=== PATIENT | male | born 1955 | race Caucasian/White ===

== ENCOUNTER 2016-04-07 10:57 | Observation (INO) ==
--- NOTE | 2016-04-07 11:38 | Emergency Department Note ---
Disposition Clinical Impression: Generalized weakness Pneumonia Qualifiers: Pneumonia type: due to unspecified organism Laterality: bilateral Lung location : lower lobe of lung Qualified Code(s): J18.9 - Pneumonia, unspecified organism Disposition: Admitted As Inpatient Condition: Fair Time of Disposition: 13:24 ([facility]) Altered Mental Status HPI - General Chief Complaint: ED General Medical Stated Complaint: trouble urinating, breathing, increased weakness Time Seen by Provider: 04/07/16 11:00 Source: patient Mode of arrival: ambulatory Limitations: no limitations Nursing Notes Reviewed: Yes Vital Signs Reviewed: Yes - History of Present Illness HPI Narrative: Patient comes emergency room has been having cough congestion and phlegm production shortness of breath alterations in mental status and weakness family notes it has been getting worse over the past 7 days just finished a course denies any diarrhea melena hematochezia or hematemesis E neck pain or neck stiffness denies any rashes or lesions MD complaint: altered mental status Onset (ago): week(s) Timing confirmed by: spouse Pain Severity: moderate Pain Scale: 4 Consistency of Symptoms: getting worse Context: other (recent illness) Associated symptoms: Reports: cough, loss of appetite, malaise, difficulty walking. Denies: chest pain, diaphoresis, fever, chills, headaches, nausea/ vomiting, rash, seizure, shortness of breath, syncope, weakness, foul smelling urine, diarrhea, incontinence - Related Data Home Medications Medication Instructions Recorded Confirmed Aclidinium [place] [Tudorza 400 mcg IH DAILY 04/07/16 04/07/16 Pressair] Albuterol Sulfate [Ventolin Hfa] 18 gm IH PRN 04/07/16 ClonazePAM [Klonopin] 2 mg PO QID 04/07/16 04/07/16 Omeprazole 20 mg PO BID 04/07/16 04/07/16 Oxycodone HCl [Roxicodone 30 MG 30 mg PO Q4H PRN 04/07/16 04/07/16 Immed Release] Oxymorphone HCl [Opana ER] 40 mg PO BID 04/07/16 04/07/16 Salmeterol Xinafoate [Serevent 50 mcg IH BID 04/07/16 04/07/16 Diskus] Allergies Allergy/AdvReac Type Severity Reaction Status Date / Time Oxytetracycline Allergy Hives Verified 04/07/16 13:50 [From Terramycin] Penicillins [PCN] Allergy Hives Verified 04/07/16 14:02 acetaminophen [From Percocet] AdvReac See Verified 04/07/16 14:02 Comments Oxycodone [From Percocet] AdvReac See Verified 04/07/16 14:02 Comments All systems ED: reviewed and negative except as stated. Constitutional: Reports: weakness. Denies: fever, chills Eyes: Denies: vision change ENT ED: Reports: congestion Cardiovascular: Reports: dyspnea on exertion, syncope (near). Denies: chest pain Respiratory: Reports: cough, dyspnea, sputum production Gastrointestinal: Denies: abdominal pain, nausea, vomiting Genitourinary: Denies: urgency, dysuria Musculoskeletal: Denies: back pain Integumentary: Denies: rash, abrasion Neurological: Reports: weakness. Denies: headache Psychiatric: Denies: anxiety Endocrine: Denies: fatigue Hematological/Lymphatic: Denies: easy bleeding Allergic/Immunologic: Denies: facial swelling Past Medical History - Past Medical History Attestation: Yes The following information was validated with the patient. Source: patient, old records reviewed, nursing notes reviewed Medical history: Reports: cancer, COPD, hyperlipidemia, hypertension Psychiatric history: Reports: anxiety - Social History Smoking Status: Former smoker Alcohol use: Reports: none Drug use: Reports: none Physical Exam - General Limitations: no limitations General appearance: alert, in no apparent distress, cachectic, other (Ill appearing emaciated) - Head Head exam: atraumatic, normocephalic, normal inspection - Eye Eye exam: Present: normal appearance, PERRL, EOMI - ENT ENT exam: normal exam, normal oropharynx, mucous membranes moist - Neck Neck exam: Present: normal inspection, full ROM, trachea midline - Chest Chest inspection: Present: normal inspection, symmetric chest wall rise - Respiratory Respiratory exam: Present: normal lung sounds bilaterally - Cardiovascular Cardiovascular exam: Present: regular rate, normal rhythm, normal heart sounds - Abdominal Exam Abdominal exam: Present: Non-Tender, normal bowel sounds. Absent: mass, pulsatile mass - Extremities Exam Extremities exam: Present: normal inspection, full ROM, normal capillary refill. Absent: tenderness, pedal edema - Back Exam Back exam: Present: normal inspection, full ROM - Neurological Exam Neurological exam: Present: alert, oriented X3, CN II-XII intact - Psychiatric Psychiatric exam: Present: normal affect, normal mood - Skin Skin exam: Present: warm, dry, intact, pallor Course Course Narrative: Patient was seen and examined patient evaluation septic workup being performed patient showing that he is normal cardiac normal pressure white count is greater than 20,000 but this may be him to the patient to have elevated white count and lactic acid is level is elevated as a result patient was started on an antibiotics and admitted Vital Signs Temperature 100.4 F H 04/07/16 11:00 Pulse Rate 110 04/07/16 11:00 Respiratory Rate 18 04/07/16 11:00 Blood Pressure 120/71 04/07/16 11:00 O2 Sat by Pulse Oximetry 88 L 04/07/16 11:00 Temperature 98.1 F 04/08/16 11:29 Pulse Rate 90 04/08/16 11:29 Respiratory Rate 15 04/08/16 12:06 Blood Pressure 125/80 04/08/16 11:29 O2 Sat by Pulse Oximetry 93 L 04/08/16 12:06 Oxygen Delivery Oxygen Delivery Nasal Cannula Altered Mental Status - [facility] Narrative Medical decision making narrative: Pneumonia UTI - Differential Diagnosis Likely: altered mental status, delirium, dementia, hyponatremia, sepsis - Medical Records Medical records reviewed: Yes I reviewed the patient's medical records. - Lab Data Lab results reviewed: Yes I reviewed the patient's lab results. Result diagrams: 04/08/16 05:28 04/08/16 05:28 Lab Results 04/07/16 04/07/16 04/07/16 Range/Units 11:30 11:30 11:30 WBC 20.8 H (4.3-11.1) K/mcL RBC 4.63 (4.19-5.50) M/mcL Hgb 12.5 L (12.9-16.9) g/dL Hct 39.0 (37.5-50.1) % MCV 84.2 (83.0-100.0) fL MCH 27.0 L (28.0-33.3) pg MCHC 32.1 (31.6-35.5) g/dL RDW 14.0 (11.5-14.5) % Plt Count 143 (140-400) K/mcL MPV 10.7 (9.4-12.4) fL Immature Gran % 0.7 (0-4) % Seg Neutrophils % 89.6 % Lymphocytes % 3.3 % Monocytes % 6.3 % Eosinophils % 0.0 % Basophils % 0.1 % Neutrophils # 18.6 H (1.6-8.9) K/mcL Lymphocytes # 0.7 (0.6-4.6) K/mcL Monocytes # 1.3 (0.0-1.3) K/mcL Eosinophils # 0.0 (0.0-0.6) K/mcL Basophils # 0.0 (0.0-0.2) K/mcL PT (9.4-12.1) Seconds INR APTT 21.6 L (26.0-36.0) Seconds VBG Lactic Acid (0.5-2.2) mmol/L Sodium 147 H (136-145) mEq/L Potassium 2.6 L (3.5-4.5) mEq/L Chloride 101 (98-109) mEq/L Carbon Dioxide 32 H (19-29) mEq/L BUN 25 (8-26) mg/dL Creatinine 0.82 (0.72-1.25) mg/dL Est GFR ( Amer) > 60 (> 60) Est GFR (Non-Af Amer) > 60 (> 60) BUN/Creatinine Ratio 30 H (6-26) Glucose 190 H (70-99) mg/dL Calculated Osmolality 313 H (280-300) Calcium 8.9 (8.6-10.8) mg/dL Total Bilirubin 0.8 (0.2-1.2) mg/dL Direct Bilirubin (0.0-0.5) mg/dL Indirect Bilirubin (0.0-1.2) mg/dL AST 17 (5-34) Units/L ALT 12 (0-55) Units/L Alkaline Phosphatase 131 H (38-126) Units/L Serum Total Protein 5.9 L (6.0-8.3) g/dL Albumin 2.3 L (3.5-5.0) g/dL Globulin 3.6 H (2.4-3.5) g/dL Albumin/Globulin Ratio 0.6 L (1.1-2.2) TSH (0.350-4.840) mcIU/mL Urine Color (Yellow) Urine Clarity (Clear) Urine pH (5.0-8.0) pH Units Ur Specific [place] (1.010-1.025) Urine Protein (Neg-Trace) mg/dL Urine Glucose (UA) (Normal) mg/dL Urine Ketones (Negative) mg/dL Urine Blood (Negative) Urine Nitrite (Negative) Urine Bilirubin (Negative) Urine Urobilinogen (Normal) mg/dL Ur Leukocyte Esterase (Negative) Urine Microscopic WBC (0-3) per hpf Ur Squamous Epith Cells (None-Few) per lpf Hyaline Casts (None-Few) per lpf Granular Casts (None Seen) per lpf WBC Casts (None Seen) per lpf Ur Culture Indicated? (NO) 04/07/16 04/07/16 04/07/16 Range/Units 11:30 11:30 11:30 WBC (4.3-11.1) K/mcL RBC (4.19-5.50) M/mcL Hgb (12.9-16.9) g/dL Hct (37.5-50.1) % MCV (83.0-100.0) fL MCH (28.0-33.3) pg MCHC (31.6-35.5) g/dL RDW (11.5-14.5) % Plt Count (140-400) K/mcL MPV (9.4-12.4) fL Immature Gran % (0-4) % Seg Neutrophils % % Lymphocytes % % Monocytes % % Eosinophils % % Basophils % % Neutrophils # (1.6-8.9) K/mcL Lymphocytes # (0.6-4.6) K/mcL Monocytes # (0.0-1.3) K/mcL Eosinophils # (0.0-0.6) K/mcL Basophils # (0.0-0.2) K/mcL PT 16.3 H (9.4-12.1) Seconds INR 1.5 APTT (26.0-36.0) Seconds VBG Lactic Acid 3.4 H (0.5-2.2) mmol/L Sodium (136-145) mEq/L Potassium (3.5-4.5) mEq/L Chloride (98-109) mEq/L Carbon Dioxide (19-29) mEq/L BUN (8-26) mg/dL Creatinine (0.72-1.25) mg/dL Est GFR ( Amer) (> 60) Est GFR (Non-Af Amer) (> 60) BUN/Creatinine Ratio (6-26) Glucose (70-99) mg/dL Calculated Osmolality (280-300) Calcium (8.6-10.8) mg/dL Total Bilirubin (0.2-1.2) mg/dL Direct Bilirubin (0.0-0.5) mg/dL Indirect Bilirubin (0.0-1.2) mg/dL AST (5-34) Units/L ALT (0-55) Units/L Alkaline Phosphatase (38-126) Units/L Serum Total Protein (6.0-8.3) g/dL Albumin (3.5-5.0) g/dL Globulin (2.4-3.5) g/dL Albumin/Globulin Ratio (1.1-2.2) TSH 0.384 (0.350-4.840) mcIU/mL Urine Color (Yellow) Urine Clarity (Clear) Urine pH (5.0-8.0) pH Units Ur Specific [place] (1.010-1.025) Urine Protein (Neg-Trace) mg/dL Urine Glucose (UA) (Normal) mg/dL Urine Ketones (Negative) mg/dL Urine Blood (Negative) Urine Nitrite (Negative) Urine Bilirubin (Negative) Urine Urobilinogen (Normal) mg/dL Ur Leukocyte Esterase (Negative) Urine Microscopic WBC (0-3) per hpf Ur Squamous Epith Cells (None-Few) per lpf Hyaline Casts (None-Few) per lpf Granular Casts (None Seen) per lpf WBC Casts (None Seen) per lpf Ur Culture Indicated? (NO) 04/07/16 04/07/16 Range/Units 11:30 11:42 WBC (4.3-11.1) K/mcL RBC (4.19-5.50) M/mcL Hgb (12.9-16.9) g/dL Hct (37.5-50.1) % MCV (83.0-100.0) fL MCH (28.0-33.3) pg MCHC (31.6-35.5) g/dL RDW (11.5-14.5) % Plt Count (140-400) K/mcL MPV (9.4-12.4) fL Immature Gran % (0-4) % Seg Neutrophils % % Lymphocytes % % Monocytes % % Eosinophils % % Basophils % % Neutrophils # (1.6-8.9) K/mcL Lymphocytes # (0.6-4.6) K/mcL Monocytes # (0.0-1.3) K/mcL Eosinophils # (0.0-0.6) K/mcL Basophils # (0.0-0.2) K/mcL PT (9.4-12.1) Seconds INR APTT (26.0-36.0) Seconds VBG Lactic Acid (0.5-2.2) mmol/L Sodium (136-145) mEq/L Potassium (3.5-4.5) mEq/L Chloride (98-109) mEq/L Carbon Dioxide (19-29) mEq/L BUN (8-26) mg/dL Creatinine (0.72-1.25) mg/dL Est GFR ( Amer) (> 60) Est GFR (Non-Af Amer) (> 60) BUN/Creatinine Ratio (6-26) Glucose (70-99) mg/dL Calculated Osmolality (280-300) Calcium (8.6-10.8) mg/dL Total Bilirubin 0.8 (0.2-1.2) mg/dL Direct Bilirubin 0.3 (0.0-0.5) mg/dL Indirect Bilirubin 0.5 (0.0-1.2) mg/dL AST 18 (5-34) Units/L ALT 12 (0-55) Units/L Alkaline Phosphatase 131 H (38-126) Units/L Serum Total Protein 5.8 L (6.0-8.3) g/dL Albumin 2.3 L (3.5-5.0) g/dL Globulin 3.5 (2.4-3.5) g/dL Albumin/Globulin Ratio 0.7 L (1.1-2.2) TSH (0.350-4.840) mcIU/mL Urine Color Yellow (Yellow) Urine Clarity Clear (Clear) Urine pH 6.0 (5.0-8.0) pH Units Ur Specific [place] 1.015 (1.010-1.025) Urine Protein 30 H (Neg-Trace) mg/dL Urine Glucose (UA) Normal (Normal) mg/dL Urine Ketones Negative (Negative) mg/dL Urine Blood Negative (Negative) Urine Nitrite Negative (Negative) Urine Bilirubin Small H (Negative) Urine Urobilinogen Normal (Normal) mg/dL Ur Leukocyte Esterase Negative (Negative) Urine Microscopic WBC 3-5 H (0-3) per hpf Ur Squamous Epith Cells None Seen (None-Few) per lpf Hyaline Casts Many H (None-Few) per lpf Granular Casts Few H (None Seen) per lpf WBC Casts Few H (None Seen) per lpf Ur Culture Indicated? NO (NO) - Radiology Data Radiology results reviewed: Yes I reviewed the patient's radiology results. ITS Impressions Chest X-Ray 04/07/16 11:14 IMPRESSION: Right pleural effusion. Basilar airspace disease may represent compressive atelectasis or pneumonia. Right suprahilar density may be due to superimposed vascular structures, infiltrate, or nodule. These findings would be best assessed with chest CT with contrast D/ / Mono Duarte MD / Mono Duarte MD Interpreting Provider: Mono Duarte MD Head CT 04/07/16 11:14 IMPRESSION: Small subcentimeter lesion of the left basal ganglia, of indeterminate age but favored to be due to a remote lacunar infarct. No acute abnormality otherwise. No intracranial hemorrhage and no evidence of mass. D/ / Huang Rios MD / Huang Rios MD Interpreting Provider: Huang Rios MD - EKG Data EKG attestation: Yes I reviewed and interpreted this EKG. EKG results narrative: Rhythm sinus tachy Heart Rate 106 SD 96 QRS 89 QT 397 Axes 62 TPA Checklist - LKW: 3-4.5 hrs Add. Contraindications Patient/family understanding: The patient/family members have been counseled and understood the risk, benefit , and alternatives of treatment. Critical Care Time Critical Care Time: No
[2016-04-07 11:45] LABS: Bilirubin,Urine Small (Negative); Blood,Urine Negative (Negative); Clarity,Urine Clear (Clear); Color,Urine Yellow (Yellow); Glucose,Urine (UA) Normal (Normal); Ketones,Urine Negative (Negative); Leukocyte Esterase,Urine Negative (Negative); Nitrite,Urine Negative (Negative); Protein,Urine 30 mg/dL (Neg-Trace); Specific Gravity,Urine 1.015 (1.010-1.025); Urobilinogen,Urine Normal (Normal)
[2016-04-07 11:50] LABS: Basophils % 0.1 %; Hemoglobin 12.5 g/dL (12.9-16.9); Immature Granulocytes % 0.7 % (0-4); Lymphocytes # 0.7 K/mcL (0.6-4.6); Lymphocytes % 3.3 %; Mean Corpuscular HGB Conc 32.1 g/dL (31.6-35.5); Mean Corpuscular Volume 84.2 fL (83.0-100.0); Mean Platelet Volume 10.7 fL (9.4-12.4); Monocytes # 1.3 K/mcL (0.0-1.3); Monocytes % 6.3 %; Neutrophils # 18.6 K/mcL (1.6-8.9); Platelet Count 143 K/mcL (140-400); Red Blood Count 4.63 M/mcL (4.19-5.50); Segmented Neutrophils % 89.6 %
[2016-04-07 12:02] LABS: INR 1.5; Prothrombin Time 16.3 Seconds (9.4-12.1)
[2016-04-07 12:09] LABS: Granular Casts,Urine Few per lpf (None Seen); Hyaline Casts,Urine Many per lpf (None-Few); Squamous Epithelial Cell,Urine None Seen per lpf (None-Few); White Blood Cell Casts,Urine Few per lpf (None Seen)
[2016-04-07 12:15] LABS: Alanine Aminotransferase 12 Units/L (0-55); Albumin 2.3 g/dL (3.5-5.0); Albumin/Globulin Ratio 0.6 (1.1-2.2); Alkaline Phosphatase 131 Units/L (38-126); Aspartate Amino Transferase 17 Units/L (5-34); BUN/Creatinine Ratio 30 (6-26); Bilirubin,Total 0.8 mg/dL (0.2-1.2); Blood Urea Nitrogen 25 mg/dL (8-26); Calcium 8.9 mg/dL (8.6-10.8); Carbon Dioxide 32 mEq/L (19-29); Chloride 101 mEq/L (98-109); Globulin 3.6 g/dL (2.4-3.5); Glucose 190 mg/dL (70-99); Osmolality,Calculated 313 (280-300); Potassium 2.6 mEq/L (3.5-4.5); Sodium 147 mEq/L (136-145); Total Protein 5.9 g/dL (6.0-8.3); eGFR For African Americans > 60 (> 60); eGFR For Non-African Americans > 60 (> 60)
[2016-04-07] MEDS ORDERED: Ondansetron 4 MG/2 ML VIAL IVP PRN (14:41)
[2016-04-07] MEDS ORDERED: 0.9 % Sodium Chloride 1,000 ML IVC SCH (14:41)
[2016-04-07] MEDS ORDERED: Naloxone 0.4 MG/ML INJ IVP PRN (14:41)
[2016-04-07] MEDS ORDERED: Levofloxacin 750 MG/150 ML 750 MG/150 ML BAG IVPB ONE (15:00)
[2016-04-07 15:03] LABS: Bilirubin,Total 0.8 mg/dL (0.2-1.2)
--- NOTE | 2016-04-07 15:20 | Internal Med History&Physical ---
Date of Encounter: 04/07/16 Time of Encounter: 14:45 Assessment and Plan (1) Pneumonia Current visit: Yes Status: Acute He has been started on IV Levaquin. Will add lactobacillus. Further workup done as needed. Qualifiers: Pneumonia type: due to unspecified organism Laterality: bilateral Lung location: lower lobe of lung Qualified Code(s): J18.9 - Pneumonia, unspecified organism (2) SCLC (small cell lung carcinoma) Current visit: Yes Status: Acute Continue palliative care. I discussed hospice services with the patient and his . They have chosen not to use hospice at this time. Qualifiers: Laterality: unspecified laterality Qualified Code(s): C34.90 - Malignant neoplasm of unspecified part of unspecified bronchus or lung (3) Hypokalemia Current visit: Yes Status: Acute He will receive IV and oral potassium replacement. Recheck labs in a.m. (4) Anemia Current visit: Yes Status: Acute We will check anemia testing in a.m. Qualifiers: Anemia type: unspecified type Qualified Code(s): D64.9 - Anemia, unspecified Internal Medicine - H&P: HPI Chief complaint: Dyspnea and confusion Admitted From: Home Plans for Post Hospital Care: Home History of present illness: Mr. Mcdaniel is a 60 year old male who came to the hospital with increasing dyspnea and confusion over the past 3 days. He had a cough productive of yellowish-green sputum with occasional blood specks noted. Reports fever up to 101.7 at home. He was evaluated in emergency room and felt to have pneumonia. He was admitted to [facility] floor for ongoing care needs. 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 He did not receive primary treatment for the malignancy because of metastases present at the time the SCLC was diagnosed. He did receive radiation to a left femur metastases. His respiratory history significant for having smoked from age [age] up to 5 packs per day. He wears oxygen at home 17/10. He has a diagnosis of COPD. Past Med Surg Social Fam HX - Past Medical History Medical history: cancer, COPD, hyperlipidemia, hypertension Psychiatric history: anxiety - Social History Smoking Status: Former smoker Alcohol use: none Drug use: none Internal Medicine - H&P: Meds Aclidinium [place] [Tudorza Pressair] 400 mcg IH DAILY 04/07/16 [History] Albuterol Sulfate [Ventolin Hfa] 18 gm IH PRN 04/07/16 [History] ClonazePAM [Klonopin] 2 mg PO QID 04/07/16 [History] Omeprazole 20 mg PO BID 04/07/16 [History] Oxycodone HCl [Roxicodone 30 MG Immed Release] 30 mg PO Q4H PRN 04/07/16 [ History] Oxymorphone HCl [Opana ER] 40 mg PO BID 04/07/16 [History] Salmeterol Xinafoate [Serevent Diskus] 50 mcg IH BID 04/07/16 [History] Allergies Oxytetracycline [From Terramycin] Allergy (Verified 04/07/16 13:50) Hives Penicillins [PCN] Allergy (Verified 04/07/16 14:02) Hives sts it swells him up, changed to oxycodone acetaminophen [From Percocet] Adverse Reaction (Verified 04/07/16 14:02) See Comments Oxycodone [From Percocet] Adverse Reaction (Verified 04/07/16 14:02) See Comments All Systems PM: A 10-system review of systems was performed and is negative for pertinent findings except as documented above in the HPI. Review of systems: Gen.: His weight has decreased from 165 pounds 2 years ago to present weight of 119 pounds Cardiovascular: He has history of hypertension but does not take medication at this time because of improvement in blood pressure with the weight loss. He has no past NH heart failure DVT or pulmonary embolus Respiratory: As per history of present illness GI: He has GERD. He has had esophageal stricture requiring 5 dilatation procedures. The most recent one was in 2012. Denies disorders of his liver gallbladder or exocrine pancreas : He denies hematuria dysuria or kidney stones Neurologic: He denies large distribution strokes or seizures. Endocrine: Has no known diabetes thyroid disease or hyperlipidemia Hematology/oncology: He has SCLC as per above. He had anemia documented on blood work in emergency room. Psychiatric: He has anxiety but no significant depression or other mental health issues Musk skeletal: He has DJD but no known gout or other bone joint or muscle disorders. He does have chronic low back pain. - Constitutional Vitals: Temp Pulse Resp BP Pulse Ox 99.3 F 97 17 141/74 93 L 04/07/16 14:44 04/07/16 14:44 04/07/16 14:44 04/07/16 14:44 04/07/16 14:44 Exam: Gen.: He is a well-developed lean male lying in bed who appears anxious and in pain HEENT: Head is atraumatic and normocephalic. Eyes: EOMI. There is no scleral icterus. Mouth: Mucosa is moist. Neck: Supple and nontender. There is no thyromegaly or adenopathy noted. Heart: Regular without murmurs gallops or ectopics. Rate is approximately 104/ m. Lungs: Diminished breath sounds diffusely. He has egophony in the bases bilaterally. Abdomen: There is mild tenderness to palpation. No masses or guarding are noted. Extremities: He has atrophy of muscles of his arms and legs. He has poor hygiene of his lower legs and feet. Dorsalis pedis and posttibial pulses are virtually nonpalpable. Neurologic: Mental status: He is talkative and able to answer a few questions. His provides much of the history. Cranial nerves: Smile is symmetric. Forehead wrinkles bilaterally. Tongue protrudes midline. EOMI. Motor: There is no pronator drift. Cerebellar: Finger to nose is intact bilaterally. Skin: Warm and dry Internal Med - H&P Results - Labs CBC & Chem 7: 04/07/16 11:30 04/07/16 11:30
[2016-04-07 15:25] LABS: Albumin 2.3 g/dL (3.5-5.0); Albumin/Globulin Ratio 0.7 (1.1-2.2); Bilirubin,Direct 0.3 mg/dL (0.0-0.5); Bilirubin,Indirect 0.5 mg/dL (0.0-1.2); Globulin 3.5 g/dL (2.4-3.5); Total Protein 5.8 g/dL (6.0-8.3)
--- NOTE | 2016-04-07 16:15 | Electrocardiograph Report ---
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
[2016-04-07] MEDS: ClonazePAM 0.5 MG TABLET PO SCH ×2 (17:19→21:17)
[2016-04-07] MEDS: 0.45 % Sodium Chloride w/KCl 20 MEQ/1,000 ML MLS IVC SCH (17:24)
[2016-04-07] MEDS ORDERED: *HR* FentaNYL PATCH 50 MCG PATCH TD SCH (17:45)
[2016-04-07] MEDS ORDERED: OXYCODONE PO SCH (18:00)
[2016-04-07] MEDS ORDERED: *HR* OxyCODONE ER (12 HR) 40 MG TABLET PO SCH (18:00)
[2016-04-07] MEDS: Potassium Chloride Elixir 20 MEQ/15 ML UDC PO SCH (18:04)
[2016-04-07] MEDS: *HR* OxyCODONE Immed Rel 15 MG TABLET PO PRN (18:12)
[2016-04-07] MEDS ORDERED: OXYMORPHONE HCL 40 MG PO SCH (21:00)
[2016-04-07] MEDS: SALMETEROL IH SCH (21:44)
[2016-04-08] MEDS: *HR* OxyCODONE Immed Rel 15 MG TABLET PO PRN ×2 (01:38→20:29)
[2016-04-08] MEDS: 0.45 % Sodium Chloride w/KCl 20 MEQ/1,000 ML MLS IVC SCH ×3 (01:41→19:02)
[2016-04-08 05:35] LABS: Basophils % 0.1 %; Eosinophils % 0.9 %; Hematocrit 32.3 % (37.5-50.1); Hemoglobin 10.3 g/dL (12.9-16.9); Immature Granulocytes % 0.6 % (0-4); Lymphocytes # 1.3 K/mcL (0.6-4.6); Lymphocytes % 7.9 %; Mean Corpuscular HGB Conc 31.9 g/dL (31.6-35.5); Mean Corpuscular Hemoglobin 27.2 pg (28.0-33.3); Mean Corpuscular Volume 85.4 fL (83.0-100.0); Monocytes # 1.8 K/mcL (0.0-1.3); Monocytes % 11.3 %; Neutrophils # 12.8 K/mcL (1.6-8.9); Red Blood Count 3.78 M/mcL (4.19-5.50); Segmented Neutrophils % 79.2 %
[2016-04-08 05:42] LABS: Eosinophils # 0.1 K/mcL (0.0-0.6); Platelet Count 99 K/mcL (140-400)
[2016-04-08 05:51] LABS: Magnesium 1.7 mg/dL (1.6-2.6)
[2016-04-08 05:58] LABS: BUN/Creatinine Ratio 29 (6-26); Blood Urea Nitrogen 20 mg/dL (8-26); Calcium 7.8 mg/dL (8.6-10.8); Carbon Dioxide 33 mEq/L (19-29); Chloride 102 mEq/L (98-109); Glucose 101 mg/dL (70-99); Osmolality,Calculated 301 (280-300); Potassium 3.3 mEq/L (3.5-4.5); Sodium 144 mEq/L (136-145); eGFR For African Americans > 60 (> 60); eGFR For Non-African Americans > 60 (> 60)
[2016-04-08] MEDS: SALMETEROL IH SCH (08:36)
[2016-04-08] MEDS: ACLIDINIUM IH SCH (08:37)
[2016-04-08] MEDS: Potassium Chloride Elixir 20 MEQ/15 ML UDC PO SCH ×2 (09:22→17:19)
[2016-04-08] MEDS: ClonazePAM 0.5 MG TABLET PO SCH ×3 (09:31→17:19)
[2016-04-08 10:15] LABS: Folate 3.2 ng/mL (7.0-31.4)
[2016-04-08] MEDS: Albuterol 2.5 MG/3 ML NEBULIZER IH PRN ×3 (11:57→23:51)
[2016-04-08] MEDS ORDERED: Cyanocobalamin (B-12) 1,000 MCG/ML VIAL IM ONE (12:49)
--- NOTE | 2016-04-08 12:50 | Internal Med Progress Note ---
Date of Encounter: 04/08/16 Time of Encounter: 12:40 - Assessment and plan (1) Pneumonia Current Visit: Yes Status: Acute Assessment and plan: April 08. Continue Levaquin and lactobacillus. Qualifiers: Pneumonia type: due to unspecified organism Laterality: bilateral Lung location: lower lobe of lung Qualified Code(s): J18.9 - Pneumonia, unspecified organism (2) SCLC (small cell lung carcinoma) Current Visit: Yes Status: Acute Assessment and plan: April 08. Continue present care Qualifiers: Laterality: unspecified laterality Qualified Code(s): C34.90 - Malignant neoplasm of unspecified part of unspecified bronchus or lung (3) Hypokalemia Current Visit: Yes Status: Acute Assessment and plan: April 08. Improved. We will recheck labs in a.m. Continue present care (4) Anemia Current Visit: Yes Status: Acute Assessment and plan: April 08. He is low on B12 and folic acid. Will give supplements for both. Qualifiers: Anemia type: unspecified type Qualified Code(s): D64.9 - Anemia, unspecified - Subjective Interval history: April 08. He has no new complaints and states he feels better. - Constitutional Vitals: Temp Pulse Resp BP Pulse Ox 98.1 F 90 15 125/80 93 L 04/08/16 11:29 04/08/16 11:29 04/08/16 12:06 04/08/16 11:29 04/08/16 12:06 Exam: He is resting comfortably in bed eating lunch. He appears less agitated and more coherent. I reviewed his medications and lab results. Internal Medicine: Result - Labs CBC & Chem 7: 04/08/16 05:28 04/08/16 05:28 Labs: Short CBC 04/08/16 Range/Units 05:28 WBC 16.1 H (4.3-11.1) K/mcL Hgb 10.3 L D (12.9-16.9) g/dL Hct 32.3 L (37.5-50.1) % Plt Count 99 L (140-400) K/mcL Neutrophils # 12.8 H (1.6-8.9) K/mcL BMP 04/08/16 05:28 Sodium 144 Potassium 3.3 L Chloride 102 Carbon Dioxide 33 H BUN 20 Creatinine 0.69 L Glucose 101 H Calcium 7.8 L - ABG Interpretation ABG results: PT/INR, D-dimer PT 16.3 Seconds (9.4-12.1) H 04/07/16 11:30 Consult Discharge Plan - Plan Referrals: Jackie Soriano DO [Primary Care Provider] - 1 week
[2016-04-08] MEDS ORDERED: Folic Acid 1 MG TABLET PO SCH (13:00)
[2016-04-08] MEDS ORDERED: Levofloxacin 750 MG/150 ML 750 MG/150 ML BAG IVPB SCH (14:00)
[2016-04-08] MEDS ORDERED: ClonazePAM 0.5 MG TABLET PO SCH (21:00)
[2016-04-09] MEDS: ACLIDINIUM IH SCH (00:05)
[2016-04-09] MEDS: SALMETEROL IH SCH ×2 (00:05→11:26)
[2016-04-09] MEDS: 0.45 % Sodium Chloride w/KCl 20 MEQ/1,000 ML MLS IVC SCH (03:30)
[2016-04-09 04:36] LABS: Basophils % 0.1 %; Eosinophils # 0.1 K/mcL (0.0-0.6); Eosinophils % 0.8 %; Hematocrit 30.8 % (37.5-50.1); Hemoglobin 10.1 g/dL (12.9-16.9); Lymphocytes # 1.2 K/mcL (0.6-4.6); Lymphocytes % 8.2 %; Mean Corpuscular HGB Conc 32.8 g/dL (31.6-35.5); Mean Corpuscular Hemoglobin 27.4 pg (28.0-33.3); Mean Corpuscular Volume 83.7 fL (83.0-100.0); Mean Platelet Volume 11.5 fL (9.4-12.4); Monocytes % 14.2 %; Neutrophils # 10.9 K/mcL (1.6-8.9); Red Blood Count 3.68 M/mcL (4.19-5.50); Segmented Neutrophils % 75.7 %
[2016-04-09 04:37] LABS: Platelet Count 97 K/mcL (140-400)
[2016-04-09 04:47] LABS: BUN/Creatinine Ratio 18 (6-26); Blood Urea Nitrogen 11 mg/dL (8-26); Calcium 7.6 mg/dL (8.6-10.8); Carbon Dioxide 29 mEq/L (19-29); Chloride 102 mEq/L (98-109); Glucose 92 mg/dL (70-99); Osmolality,Calculated 285 (280-300); Potassium 3.8 mEq/L (3.5-4.5); Sodium 138 mEq/L (136-145); eGFR For African Americans > 60 (> 60); eGFR For Non-African Americans > 60 (> 60)
[2016-04-09 06:38] VITALS: BP 125/70
[2016-04-09] MEDS: *HR* OxyCODONE Immed Rel 15 MG TABLET PO PRN (06:56)
[2016-04-09] MEDS: ClonazePAM 0.5 MG TABLET PO SCH (08:01)
--- NOTE | 2016-04-09 08:45 | Discharge Summary ---
Date of Encounter: 04/09/16 Time of Encounter: 08:30 - Discharge Diagnosis (1) Pneumonia Priority: Primary Status: Acute Qualifiers: Pneumonia type: due to unspecified organism Laterality: bilateral Lung location: lower lobe of lung Qualified Code(s): J18.9 - Pneumonia, unspecified organism (2) SCLC (small cell lung carcinoma) Priority: Secondary Status: Acute Qualifiers: Laterality: unspecified laterality Qualified Code(s): C34.90 - Malignant neoplasm of unspecified part of unspecified bronchus or lung (3) Hypokalemia Priority: Secondary Status: Resolved (4) Anemia Priority: Secondary Status: Acute Qualifiers: Anemia type: unspecified type Qualified Code(s): D64.9 - Anemia, unspecified - Discharge Medications Prescriptions: Cyanocobalamin (B-12) [Vitamin B12] 1,000 mcg PO DAILY #30 tablet Folic Acid 1 mg PO DAILY #30 tablet Lactobacillus [Culturelle] 1 each PO BID #10 cap.sprink Levofloxacin [Levaquin] 750 mg PO DAILY #5 tablet Home Medications: Aclidinium Lima [Tudorza Pressair] 400 mcg IH DAILY 04/07/16 [History] Albuterol Sulfate [Ventolin Hfa] 18 gm IH PRN 04/07/16 [History] Omeprazole 20 mg PO BID 04/07/16 [History] Oxycodone HCl [Roxicodone 30 MG Immed Release] 30 mg PO Q4H PRN 04/07/16 [ History] Oxymorphone HCl [Opana ER] 40 mg PO BID 04/07/16 [History] Salmeterol Xinafoate [Serevent Diskus] 50 mcg IH BID 04/07/16 [History] ClonazePAM [Klonopin] 0.5 mg PO QID 365 Days 04/09/16 [Rx] Cyanocobalamin (B-12) [Vitamin B12] 1,000 mcg PO DAILY #30 tablet 04/09/16 [Rx] Folic Acid 1 mg PO DAILY #30 tablet 04/09/16 [Rx] Lactobacillus [Culturelle] 1 each PO BID #10 cap.sprink 04/09/16 [Rx] Levofloxacin [Levaquin] 750 mg PO DAILY #5 tablet 04/09/16 [Rx] Allergies/Adverse Reactions: Allergies Oxytetracycline [From Terramycin] Allergy (Verified 04/07/16 13:50) Hives Penicillins [PCN] Allergy (Verified 04/07/16 14:02) Hives sts it swells him up, changed to oxycodone acetaminophen [From Percocet] Adverse Reaction (Verified 04/07/16 14:02) See Comments Oxycodone [From Percocet] Adverse Reaction (Verified 04/07/16 14:02) See Comments Date of admission: 04/07/16 14:14 Primary care physician: Jackie Dominguez Consults: 04/07/16 18:23 Consult to Service Control Operator [CONS] Routine Reason for SW Consult: Discharge Planning - Patient Status Disposition: Home, Self-Care Condition: Fair Overall status at discharge: patient is progressing back to baseline - Discharge Instructions Follow Up With: Alberto-Jackie Cordero DO [Primary Care Provider] - 1 week - Diet and Activity Activity: resume usual activities as tolerated, wear oxygen at all times Diet: advance to your usual diet Hospital course: Mr. Mcdaniel is a 60 year old male who came to the hospital with increasing dyspnea and confusion over the past 3 days. He had a cough productive of yellowish-green sputum with occasional blood specks noted. Reports fever up to 101.7 at home. He was evaluated in emergency room and felt to have pneumonia. He was admitted to [facility] floor for ongoing care needs. Initial orders were written by the emergency room physician. I saw him on April 07 and performed a history and physical. He was started on IV Levaquin. He was also given lactobacillus. He had good clinical response with WBC decreasing to 14.4 K on the day of discharge with segs 75.7%. He remained afebrile after the first hospital day. He will be discharged home with 5 additional days of antibiotic and probiotic. He was given supplemental potassium by IV and oral routes. His potassium normalized 3.8 by the day of discharge. He will increase his home dose of liquid potassium from 1.5 teaspoons nightly to 2 teaspoons nightly. He will follow with his primary care provider and/or oncologist within 1 week for follow -up lab work. His BUN and creatinine improved to 11 and 0.62 respectively on the day of discharge with estimated GFR greater than 60. Anemia testing showed iron 20, transferrin saturation 23%, transferrin 62, and ferritin 4833. His B12 and folate levels were low at 179 and 3.2 respectively. He was given IM B12 injection during hospitalization and will continue with oral B12 and folate supplements at discharge. His mental status improved and he appeared back to his baseline by the day of discharge. He will be discharged home and follow with his primary care provider and /or oncologist within 1 week. He has home oxygen. - Time Spent with Patient Total time spent providing and/or coordinating discharge services: - Constitutional Vitals: Temp Pulse Resp BP Pulse Ox 97.8 F 93 16 125/70 94 L 04/09/16 06:34 04/09/16 06:34 04/09/16 06:34 04/09/16 06:34 04/09/16 06:34
[2016-04-09] MEDS: Albuterol 2.5 MG/3 ML NEBULIZER IH PRN (11:10)
== END 2016-04-09 11:57 | disposition home or self-care (01) ==
LOC: EMEROOPIK 10:57 → INPPIK 10:57
PROVIDERS: ADMIT Internal Medicine; ATTEND Internal Medicine